=== PATIENT | female | born 1960 | race Caucasian/White ===

== ENCOUNTER → 2017-05-13 | Day surgery (SDC) | payer MEDICARE ==
[~2017-05-13] VITALS: Ht 154.9 cm; Wt 113.3 kg
[~2017-05-13] MED LIST: ACETAMINOPHEN 1000 MG/100 ML VIAL IV ONE; ACETAMINOPHEN/HYDROcodone 325 MG/7.5 MG TAB PO PRN; ADVA250A INH; ASPI81TA11 PO; CANA300T PO; CHLORHEXIDINE GLUCONATE 2 % 1 PACK (2 CLOTHS) TOPICAL PRN; CHLORHEXIDINE GLUCONATE 4% SOLN 120 ML BTL TOPICAL SCH; CLAR10CA3 PO; DILT-60 PO; DO NOT ADM ANY ANTICOAGULANT DRUGS PRN; ERTAPENEM 1,000 MG/NS 100 ML IV SCH; FAMOTIDINE 20 MG/2 ML VIAL ONE; GENTAMICIN SULFATE 80 MG/2 ML VIAL ONE; HYDR-3288 PO; HYDR-3580 PO; HYDROmorphone HCL PF 2 MG/ML VIAL ONE; IMIP50TA2 PO; INSULIN HUMAN REGULAR 1,000 UNITS/10 ML VIAL SQ PRN; INVA1INJ IV; LACTATED RINGER'S 1000 ML IV PRN; LIPI10TA PO; LISI40TA PO; LORA-392 PO; MECL-62 PO; METF1000 PO; METH10TA PO; METOPROLOL TARTRATE 25 MG TAB PO PRN; MIDAZOLAM HCL 2 MG/2 ML VIAL ONE; MONT10TA2 PO; MORPHINE SULFATE 8 MG/ML INJ IV PUSH PRN; NEOSTIGMINE 3 MG/3 ML SYR IV ONE; ONDANSETRON HCL 4 MG/2 ML VIAL IV PUSH ONE; POVIDONE IODINE 5% (ANTISEPSIS KIT) 4 APPLICATIONS EACH NARE PRN; PRED2.5T PO; PRED5TAB PO; PRIL20TA2 PO; PROPOFOL 200 MG/20 ML AMP IV ONE; SODIUM CHLOR 0.9% 250 ML INJ 250 ML ONE; SODIUM CHLORID 0.9% 500 ML IV PRN; SODIUM CHLORIDE 0.9% FLUSH 10 ML FLUSH IV FLUSH PRN; SODIUM CHLORIDE 0.9% FLUSH 10 ML FLUSH IV FLUSH SCH; VANCOMYCIN HCL 1000 MG VIAL ONE; VENTAER INH; VITA2000 PO; WELLTAB39 PO; ZINC10LO4 PO; fentaNYL CITRATE 250 MCG/5 ML AMP ONE
[2017-05-13 06:25] VITALS: BP 144/77; PULSE 95; RESP 18; TEMP 98.6; O2SAT 95
--- NOTE | 2017-05-13 08:32 | PD.OP ---
cc: Jose Daniel Salinas MD Operative Report Date of Surgery: May 13, 2017 Preoperative Diagnosis: Infection right foot with retained hardware Postoperative Diagnosis: Procedure: Removal of deep hardware right calcaneus Anesthesia: Gen. Surgeon: Jose Daniel Salinas Limousine Rental Clerk(s): ROBYN Garsia PA-C The surgical procedure was assisted by my physician operations administrative assistant. My P.A. presence was necessary throughout this case for the manipulation and positioning of the surgical extremity. My P.A. was assisting me throughout the duration of this procedure. The skill set of a physician operations administrative assistant was medically necessary to complete this procedure. During the surgical case the plant maintenance technician was working at the back table and the physician operations administrative assistant was directly assisting me. Operation and Findings: Angelica had a previous right calcaneus fracture treated with open reduction internal fixation. Patient developed cellulitis infection around her calcaneus. She has been on IV antibiotics. CT scan revealed possible involvement of the calcaneus and hardware in the infection. Informed consent was obtained and operative site was marked. She is brought to operating room. She is given IV sedation and general anesthesia. She was placed in a prone position. Bony prominences were well-padded. Timeout procedure was performed. She is on scheduled IV antibiotics. Right leg and foot were prepped with alcohol Hibiclens and draped usual sterile fashion. Procedure began with 3 per case incisions. A small incisions were made through previous scars for the posterior screws. Scar tissue was incised around the screws. There was some bone overgrowth around the screws. Guide pins were now placed through the cannulation's of each of the screws. Fluoroscopy was used to localize the screws. Once the guide pins were in position a cannulated drill was placed over the guidepins to help remove bone. A screwdriver was used to remove each of the screws. Overall the wound and bone appeared to be healthy. There is no evidence of gross infection or purulence. Incisions were closed with 3-0 nylon. Sterile dressings were applied. Patient was awakened and transferred to recovery room in stable condition. Jose Daniel Salinas MD May 13, 2017 08:32
[2017-05-13 09:57] VITALS: BP 155/72; PULSE 96; RESP 18; TEMP 98.6; O2SAT 97
--- NOTE | 2017-05-13 15:03 | RADRPT ---
EXAM DATE/TIME: 05/13/2017 08:14 [facility] COMPARISON: HEEL RIGHT ([id number]), June 10, 2016, 9:23. INDICATIONS : Hardware removal of right calcaneous. Per Dr. Tan only one image saved. MEDICAL HISTORY : None. SURGICAL HISTORY : None. ENCOUNTER: Initial ACUITY: 1 day PAIN SCORE: Non-responsive. LOCATION: Right Heel. FINDINGS: A single lateral view of the ankle is recorded digitally and interpret in room after removal of surgi rodo calcaneal screws. CONCLUSION: Intraoperative image Henok Goldstein MD on May 13, 2017 at 15:00 Board Certified Radiologist. This report was verified electronically.
== END | disposition home or self-care (01) ==
LOC: HSDC 05:31
PROVIDERS: ATTEND Orthopaedic Surgery Orthopaedic Trauma
DX: T84.89XA Other specified complication of internal orthopedic prosthetic devices, implants and grafts, initial encounter (principal); L03.115 Cellulitis of right lower limb
CPT/HCPCS: 01480; 20680; 73650; 76000; J0131; J1170; J1580; J2250; J2405; J2710; J3010; J3370; J7050; J7120

== ENCOUNTER 2017-12-07 16:04 | Observation (INO) | payer MEDICARE ==
[~2017-12-07] VITALS: Ht 154.9 cm; Wt 105.8 kg
[~2017-12-07 16:04] MED LIST changes: -ACETAMINOPHEN 1000 MG/100 ML VIAL IV ONE; -ACETAMINOPHEN/HYDROcodone 325 MG/7.5 MG TAB PO PRN; -ASPI81TA11 PO; +ASPI81TA23 PO; -CHLORHEXIDINE GLUCONATE 2 % 1 PACK (2 CLOTHS) TOPICAL PRN; -CHLORHEXIDINE GLUCONATE 4% SOLN 120 ML BTL TOPICAL SCH; -DILT-60 PO; +DILT120C50 PO; -DO NOT ADM ANY ANTICOAGULANT DRUGS PRN; -ERTAPENEM 1,000 MG/NS 100 ML IV SCH; -FAMOTIDINE 20 MG/2 ML VIAL ONE; -GENTAMICIN SULFATE 80 MG/2 ML VIAL ONE; -HYDROmorphone HCL PF 2 MG/ML VIAL ONE; -INSULIN HUMAN REGULAR 1,000 UNITS/10 ML VIAL SQ PRN; -LACTATED RINGER'S 1000 ML IV PRN; -METOPROLOL TARTRATE 25 MG TAB PO PRN; -MIDAZOLAM HCL 2 MG/2 ML VIAL ONE; -MORPHINE SULFATE 8 MG/ML INJ IV PUSH PRN; -NEOSTIGMINE 3 MG/3 ML SYR IV ONE; -ONDANSETRON HCL 4 MG/2 ML VIAL IV PUSH ONE; -POVIDONE IODINE 5% (ANTISEPSIS KIT) 4 APPLICATIONS EACH NARE PRN; -PROPOFOL 200 MG/20 ML AMP IV ONE; -SODIUM CHLOR 0.9% 250 ML INJ 250 ML ONE; -SODIUM CHLORID 0.9% 500 ML IV PRN; -SODIUM CHLORIDE 0.9% FLUSH 10 ML FLUSH IV FLUSH PRN; -SODIUM CHLORIDE 0.9% FLUSH 10 ML FLUSH IV FLUSH SCH; -VANCOMYCIN HCL 1000 MG VIAL ONE; -fentaNYL CITRATE 250 MCG/5 ML AMP ONE
[2017-12-07 16:22] VITALS: BP 101/59; PULSE 99; RESP 16; TEMP 98.3; O2SAT 97
[2017-12-07] MEDS ORDERED: CANA300T PO (16:58)
--- NOTE | 2017-12-07 17:35 | PD ---
HPI Chief Complaint: Chest Pain Time Seen by Provider: 17:28 Travel History International Travel<30 days: No Contact w/Intl Traveler<30days: No Traveled to known affect area: No History of Present Illness HPI 57yo F with PMH of HTN, DM, HLD presents to the ED with c/o left sided chest pain since yesterday. Chest pain is squeezing, intermittent and last for seconds at a time. Nonradiating and no exacerbating or alleviating factors. Denies any fever, cough, sob, n/v, abdominal pain, focal weakness or numbness. Pt does have GERD but feels a little different from her GERD. Follows with Dr. Lake and last stress test was 10 months ago. Thinks it was negative. Takes aspirin at home but did not take today. PFSH Past Medical History Hx Anticoagulant Therapy: No Arthritis: Yes (BACK AND RIGHT KNEE) Asthma: Yes Anxiety: Yes Depression: Yes Cancer: No Cardiovascular Problems: Yes (fast heart rate) High Cholesterol: Yes Chemotherapy: No COPD: Yes Cerebrovascular Accident: No Diabetes: Yes Patient Takes Glucophage: Yes Diminished Hearing: No Endocrine: Yes (adrenal hyperplasia) Gastrointestinal Disorders: Yes (GERD) GERD: Yes Genitourinary: No Hepatitis: No Hypertension: Yes Immune Disorder: No Musculoskeletal: Yes (ARTHRITIS) Neurologic: Yes (NUMBNESS IN R FOOT) Psychiatric: Yes Reproductive: No Respiratory: Yes (COPD, sleep apna) Integumentary: Yes (MRSA RT LEG) Sleep Apnea: Yes (CPAP FROM HOME) Menopausal: Yes : 2 Para: 0 Miscarriage: 2 Ectopic : Yes Past Surgical History Abdominal Surgery: Yes (CHOLECYSTECTOMY) AICD: No Body Medical Devices: HARDWARE R ANKLE, RODS IN BACK Cardiac Surgery: No Cholecystectomy: Yes Ear Surgery: No Endocrine Surgery: No Eye Surgery: No Genitourinary Surgery: Yes (BLADDER IN CHILDHOOD FOR URGENCY INCONTIENCE) Gynecologic Surgery: Yes (ECTOPIC ) Hysterectomy: No Joint Replacement: No Oral Surgery: Yes Pacemaker: No Thoracic Surgery: No Tonsillectomy: Yes Other Surgery: Yes Social History Alcohol Use: Yes (RARE) Tobacco Use: No (QUIT 11/10/14) Substance Use: No Allergies-Medications (Allergen,Severity, Reaction): Coded Allergies: cefaclor (Unverified Allergy, Severe, THROAT SWELLING, 12/07/17) cephalexin (Unverified Allergy, Severe, THROAT SWELLING, 12/07/17) doxycycline (Unverified Allergy, Severe, HIVES, 12/07/17) minocycline (Unverified Allergy, Severe, HIVES, 12/07/17) penicillin G (Unverified Allergy, Severe, THROAT SWELLING, 12/07/17) tigecycline (Unverified Allergy, Severe, HIVES, 12/07/17) *MDRO Multi-Drug Resistant Organism (Verified Allergy, Unknown, 12/07/17) MRSA (foot wound) - 01/15/14 Reported Meds & Prescriptions Reported Meds & Active Scripts Active [place] (Hydrocodone-Acetaminophen) 7.5-325 mg Tab 1 Tab PO Q4H PRN Reported Invokana (Canagliflozin) 300 Mg Tab 300 Mg PO DAILY Take before 1st meal of day. Prilosec (Omeprazole Magnesium) 20 Mg Tab 20 Mg PO DAILY Singulair (Montelukast Sodium) 10 Mg Tab 10 Mg PO HS Methadone (Methadone HCl) 10 Mg Tab 30 Mg PO DAILY Metformin (Metformin HCl) 1,000 Mg Tab 1,000 Mg PO BIDPC With meals Meclizine (Meclizine HCl) 25 Mg Tab 25 Mg PO HS PRN Claritin (Loratadine) 10 Mg Cap 10 Mg PO DAILY Lisinopril 40 Mg Tab 40 Mg PO DAILY Imipramine HCl 50 Mg Tablet 100 Mg PO BID Advair Diskus Inh (Fluticasone-Salmeterol Inh) 250-50 Mcg/Blist Aer 1 Puff INH BID Rinse mouth after use. Diltiazem CD 24 HR 120 Mg Caper 120 Mg PO DAILY Vitamin D3 (Cholecalciferol) 2,000 Unit Cap 2,000 Units PO DAILY Wellbutrin Xl 24 HR (Bupropion HCl) 300 Mg Tab 300 Mg PO DAILY Lipitor (Atorvastatin Calcium) 10 Mg Tab 10 Mg PO HS Aspirin EC (Aspirin) 81 Mg Tabdr 81 Mg PO HS pt was told not to stop taking Ventolin Hfa 18 GM Inh (Albuterol Sulfate) 90 Mcg/Act Aer 2 Puff INH Q4-6H PRN Review of Systems Except as stated in HPI: all other systems reviewed are Neg Physical Exam Narrative GENERAL: 57yo F in mild distress. SKIN: Focused skin assessment warm/dry. HEAD: Atraumatic. Normocephalic. EYES: Pupils equal and round. No scleral icterus. No injection or drainage. ENT: No nasal bleeding or discharge. Mucous membranes pink and moist. NECK: Trachea midline. No JVD. CARDIOVASCULAR: Regular rate and rhythm. No murmur appreciated. RESPIRATORY: No accessory muscle use. Clear to auscultation. Breath sounds equal bilaterally. GASTROINTESTINAL: Abdomen soft, non-tender, nondistended. MUSCULOSKELETAL: No obvious deformities. No clubbing. No cyanosis. +Bilateral lower ext edema. NEUROLOGICAL: Awake and alert. No obvious cranial nerve deficits. Motor grossly within normal limits. Normal speech. PSYCHIATRIC: Appropriate mood and affect; insight and judgment normal. Data Data Last Documented VS Vital Signs Date Time Temp Pulse Resp B/P (MAP) Pulse Ox O2 Delivery O2 Flow Rate FiO2 12/07/17 16:22 98.3 99 16 101/59 (73) 97 Orders Orders Basic Metabolic Panel (Bmp) (12/07/17 17:32) Complete Blood Count With Diff (12/07/17 17:32) Magnesium (Mg) (12/07/17 17:32) Prothrombin Time / Inr (Pt) (12/07/17 17:32) Act Partial Throm Time (Ptt) (12/07/17 17:32) Troponin I (12/07/17 17:32) Chest, Single Ap (12/07/17 17:32) Nitroglycerin Sl (Nitrostat Sl) (12/07/17 17:45) Aspirin (Aspirin) (12/07/17 18:30) Admit Order (Ed Use Only) (12/07/17 18:36) Place In Observation (12/07/17 18:35) Activity Bed Rest With Brp (12/07/17 18:35) Vital Signs (Adult) Q4H (12/07/17 18:35) Cardiac Rhythm .As Directed (12/07/17 18:35) Notify Dr: Other .PRN (12/07/17 18:35) Notify . Parameters (12/07/17 18:35) Diet Npo (12/08/17 Breakfast) Diet Heart Healthy (12/07/17 Dinner) Ckmb (Isoenzyme) Profile (12/07/17 18:35) Ckmb (Isoenzyme) Profile (12/07/17 21:35) Troponin I (12/07/17 18:35) Troponin I (12/07/17 21:35) Electrocardiogram (12/07/17 18:35) Electrocardiogram (12/07/17 21:35) ^ Obtain (12/07/17 18:35) Sodium Chloride 0.9% Flush (Ns Flush) (12/07/17 18:45) Sodium Chloride 0.9% Flush (Ns Flush) (12/07/17 21:00) Acetaminophen (Tylenol) (12/07/17 18:45) Nitroglycerin Sl (Nitrostat Sl) (12/07/17 18:45) Aspirin (Aspirin) (12/08/17 09:00) Onyx Chip Terrazzo Worker / Telemetry JIM.Q8H (12/07/17 18:35) Bedside Glucose JIM.CSUGAR (12/07/17 18:35) Blood Glucose Goal (Criteria) (12/07/17 18:35) Hypoglycemia 70 Mg/Dl Or < (12/07/17 18:35) Notify Dr: Other (12/07/17 18:35) Dextrose 50% In Suha (Vial) Inj (D50w (Vi (12/07/17 18:45) Glucagon Inj (Glucagon Inj) (12/07/17 18:45) Insulin Aspart Supplemtl Scale (Novolog (12/07/17 21:00) Myocardial Perf Tread Sp W/Ef (12/08/17 ) Albuterol Hfa Inh (Proair Hfa Inh) (12/07/17 18:45) Atorvastatin (Lipitor) (12/07/17 21:00) Diltiazem Cd (Cardizem Cd) (12/08/17 09:00) Acetamin-Hydrocod 325-7.5 Mg ([place] 7.5 (12/07/17 18:45) (Nf) Canagliflozin (Invokana) (12/08/17 09:00) (Nf) Lisinopril (12/08/17 09:00) (Nf) Omeprazole Magnesium (Prilosec) (12/08/17 09:00) Labs Laboratory Tests Test 12/07/17 17:00 White Blood Count 9.0 TH/MM3 Red Blood Count 4.22 MIL/MM3 Hemoglobin 11.5 GM/DL Hematocrit 37.6 % Mean Corpuscular Volume 89.1 FL Mean Corpuscular Hemoglobin 27.3 PG Mean Corpuscular Hemoglobin Concent 30.7 % Red Cell Distribution Width 13.5 % Platelet Count 325 TH/MM3 Mean Platelet Volume 7.8 FL Neutrophils (%) (Auto) 51.6 % Lymphocytes (%) (Auto) 37.8 % Monocytes (%) (Auto) 7.3 % Eosinophils (%) (Auto) 2.4 % Basophils (%) (Auto) 0.9 % Neutrophils # (Auto) 4.6 TH/MM3 Lymphocytes # (Auto) 3.4 TH/MM3 Monocytes # (Auto) 0.7 TH/MM3 Eosinophils # (Auto) 0.2 TH/MM3 Basophils # (Auto) 0.1 TH/MM3 CBC Comment DIFF FINAL Differential Comment Prothrombin Time 10.5 SEC Prothromb Time International Ratio 1.0 RATIO Activated Partial Thromboplast Time 25.1 SEC Blood Urea Nitrogen 14 MG/DL Creatinine 0.83 MG/DL Random Glucose 79 MG/DL Calcium Level 9.0 MG/DL Magnesium Level 2.3 MG/DL Sodium Level 135 MEQ/L Potassium Level 4.2 MEQ/L Chloride Level 102 MEQ/L Carbon Dioxide Level 28.2 MEQ/L Anion Gap 5 MEQ/L Estimat Glomerular Filtration Rate 71 ML/MIN Troponin I LESS THAN 0.02 NG/ML MDM Medical Decision Making Medical Screen Exam Complete: Yes Emergency Medical Condition: Yes Interpretation(s) EKG: NSR 90bpm. Normal axis. No ST segment elevation or depression. Differential Diagnosis GERD vs. ACS vs. musculoskeletal Narrative Course 57yo F with atypical chest pain. However, pt does have risk factors including DM, HTN, HLD, former smoker and obesity. Labs reviewed, no leukocytosis. Troponin negative. CXR negative. Pt given aspirin but does not want nitroglycerin. Discussed with Dr. Carty and accepted to her service for serial EKG and cardiac enzymes. Diagnosis Primary Impression: Chest pain Qualified Codes: R07.9 - Chest pain, unspecified Admitting Information Admitting Physician Requests: Hailey Joy DO Dec 07, 2017 17:35
[2017-12-07 17:44] LABS: AUTOMATED NEUTROPHIL # 4.6 TH/MM3 (1.8-7.7); BASOPHIL # 0.1 TH/MM3 (0-0.2); BASOPHIL % 0.9 % (0.0-2.0); EOSINOPHIL # 0.2 TH/MM3 (0-0.4); EOSINOPHIL % 2.4 % (0.0-4.0); HEMATOCRIT 37.6 % (35.0-46.0); HEMOGLOBIN 11.5 GM/DL (11.6-15.3); LYMPH % 37.8 % (9.0-44.0); LYMPHOCYTE # 3.4 TH/MM3 (1.0-4.8); MEAN CELL VOLUME 89.1 FL (80.0-100.0); MEAN CORPUSCULAR HEMOGLOBIN 27.3 PG (27.0-34.0); MEAN CORPUSCULAR HGB CONC 30.7 % (32.0-36.0); MEAN PLATELET VOLUME 7.8 FL (7.0-11.0); MONO % 7.3 % (0.0-8.0); MONOCYTE # 0.7 TH/MM3 (0-0.9); NEUT % 51.6 % (16.0-70.0); PLATELET COUNT 325 TH/MM3 (150-450); RED BLOOD COUNT 4.22 MIL/MM3 (4.00-5.30); RED CELL DISTRIBUTION WIDTH 13.5 % (11.6-17.2)
[2017-12-07] MEDS: NITROGLYCERIN 0.4 MG SL 25 TABS/BTL SL SCH ×2 (17:45→22:26)
--- NOTE | 2017-12-07 17:54 | RADRPT ---
EXAM DATE/TIME: 12/07/2017 17:34 [facility] COMPARISON: CHEST SINGLE AP, May 22, 2016, 15:35. INDICATIONS : Chest pain. MEDICAL HISTORY : Diabetes mellitus type II. Hypertension. Chronic obstructive pulmonary disease. SURGICAL HISTORY : None. ENCOUNTER: Initial ACUITY: 1 day PAIN SCORE: 6/10 LOCATION: Bilateral chest FINDINGS: A single view of the chest demonstrates the lungs to be symmetrically aerated without evidence of mas s, infiltrate or effusion. The cardiomediastinal contours are unremarkable. Osseous structures are intact. The posterior spinal fixation amber is again noted. CONCLUSION: No acute disease. David Roca MD on December 07, 2017 at 17:51 Board Certified Radiologist. This report was verified electronically.
[2017-12-07 17:56] LABS: CHLORIDE 102 MEQ/L (98-107); SODIUM (NA) 135 MEQ/L (136-145)
[2017-12-07 17:58] LABS: BICARBONATE 28.2 MEQ/L (21.0-32.0); GLUCOSE,RANDOM 79 MG/DL (74-106); MAGNESIUM 2.3 MG/DL (1.5-2.5)
[2017-12-07 17:59] LABS: BLOOD UREA NITROGEN 14 MG/DL (7-18)
[2017-12-07 18:01] LABS: PROTHROMBIN TIME - PATIENT 10.5 SEC (9.8-11.6)
[2017-12-07 18:02] LABS: CREATININE 0.83 MG/DL (0.50-1.00); GLOMERULAR FILTRATION RATE 71 ML/MIN (>89)
[2017-12-07 18:06] LABS: TROPONIN I LESS THAN 0.02 NG/ML (0.02-0.05)
[2017-12-07] MEDS ORDERED: ASPIRIN 325 MG TAB PO ONE (18:30)
[2017-12-07] MEDS ORDERED: DEXTROSE 50% IN WATER 50 ML VIAL(D50) IV PUSH PRN (18:45)
[2017-12-07] MEDS ORDERED: GLUCAGON 1 MG/ML VIAL OTHER PRN (18:45)
[2017-12-07] MEDS ORDERED: NITROGLYCERIN 0.4 MG SL 25 TABS/BTL SL PRN (18:45)
[2017-12-07] MEDS ORDERED: ALBUTEROL SULFATE 90 MCG/ACT HFA 8 GM INHALER INH PRN (18:45)
[2017-12-07] MEDS ORDERED: SODIUM CHLORIDE 0.9% FLUSH 10 ML FLUSH IV FLUSH PRN (18:45)
[2017-12-07] MEDS ORDERED: ACETAMINOPHEN/HYDROcodone 325 MG/7.5 MG TAB PO PRN (18:45)
[2017-12-07] MEDS ORDERED: ACETAMINOPHEN 500 MG CPLT PO PRN (18:45)
[2017-12-07 19:50] VITALS: BP 98/54; PULSE 89; RESP 16; O2SAT 100
[2017-12-07 20:42] LABS: TROPONIN I LESS THAN 0.02 NG/ML (0.02-0.05)
[2017-12-07] MEDS ORDERED: ATORVASTATIN 10 MG TAB PO SCH (21:00)
[2017-12-07 21:15] VITALS: BP 125/65; PULSE 98; RESP 20; TEMP 98.2; O2SAT 96
[2017-12-07 22:00] VITALS: PULSE 93
[2017-12-07 22:06] LABS: TROPONIN I LESS THAN 0.02 NG/ML (0.02-0.05)
[2017-12-07] MEDS: INSULIN ASPART SUPPLEMENTAL SCALE SQ SCH (22:31)
[2017-12-07] MEDS: SODIUM CHLORIDE 0.9% FLUSH 10 ML FLUSH IV FLUSH SCH (22:31)
[2017-12-08] VITALS: BP 116/57; PULSE 104; RESP 20; TEMP 96.9; O2SAT 96
[2017-12-08 04:00] VITALS: BP 106/53; PULSE 85; RESP 20; TEMP 96.5; O2SAT 94
--- NOTE | 2017-12-08 05:20 | EKG ---
Date Performed: 12/07/2017 Time Performed: 22:03:06 PTAGE: 57 years EKG: Sinus rhythm NORMAL ECG No significant change from prior electrocardiogram. PREVIOUS TRACING : 12/07/2017 19.43 DOCTOR: John Carpenter Interpretating Date/Time 12/08/2017 05:19:13
--- NOTE | 2017-12-08 05:20 | EKG ---
Date Performed: 12/07/2017 Time Performed: 19:43:41 PTAGE: 57 years EKG: Sinus rhythm NORMAL ECG No significant change from prior electrocardiogram. PREVIOUS TRACING : 12/07/2017 16.51 DOCTOR: John Carpenter Interpretating Date/Time 12/08/2017 05:20:18
--- NOTE | 2017-12-08 05:24 | EKG ---
Date Performed: 12/07/2017 Time Performed: 16:51:30 PTAGE: 57 years EKG: Sinus rhythm NORMAL ECG No significant change from prior electrocardiogram. PREVIOUS TRACING : 05/22/2016 16.00 DOCTOR: John Carpenter Interpretating Date/Time 12/08/2017 05:22:27
[2017-12-08 07:50] VITALS: BP 120/76; PULSE 96; RESP 20; TEMP 97.6; O2SAT 100
[2017-12-08 07:59] VITALS: PULSE 92
[2017-12-08] MEDS: INSULIN ASPART SUPPLEMENTAL SCALE SQ SCH ×2 (08:00→11:57)
[2017-12-08] MEDS: SODIUM CHLORIDE 0.9% FLUSH 10 ML FLUSH IV FLUSH SCH (08:04)
[2017-12-08] MEDS ORDERED: DILTIAZEM-CD 120 MG CAP ER PO SCH (09:00)
[2017-12-08] MEDS ORDERED: PANTOPRAZOLE SOD 20 MG DELAYED RELEASE TAB PO SCH (09:00)
[2017-12-08] MEDS ORDERED: ASPIRIN 325 MG TAB PO SCH (09:00)
[2017-12-08] MEDS ORDERED: LISINOPRIL 20 MG TAB PO SCH (09:00)
[2017-12-08] MEDS ORDERED: CANAGLIFLOZIN 300 MG PO SCH (09:00)
[2017-12-08 11:50] VITALS: BP 119/71; PULSE 96; RESP 20; TEMP 97.7; O2SAT 100
--- NOTE | 2017-12-08 13:43 | HHI.DCPOC ---
Discharge Care Plan Diagnosis: (1) Chest pain Goals to Promote Your Health * To prevent worsening of your condition and complications * To maintain your health at the optimal level Directions to Meet Your Goals Take your medications as prescribed Follow your dietary instruction Follow activity as directed Keep your appointments as scheduled Take your immunizations and boosters as scheduled If your symptoms worsen call your PCP, if no PCP go to Urgent Care Center or Emergency Room Smoking is Dangerous to Your Health. Avoid second hand smoke Call the 24-hour hour crisis hotline for domestic abuse at Yahir Saleh Dec 08, 2017 13:43
--- NOTE | 2017-12-08 14:10 | HHI.HP ---
HPI Service [facility] Primary Care Physician Marla Ye MD Admission Diagnosis Chest pain Diagnoses: (1) Chest pain Diagnosis: Principal Chief Complaint: Chest pain Travel History International Travel<30 Days: No Contact w/Intl Traveler <30 Da: No Traveled to Known Affected Are: No History of Present Illness 57-year-old female with known history of hypertension, hyperlipidemia , diabetes who presented with a 2 day history of left-sided chest pain. Patient indicates that approximately 2 days ago she started developing a sharp stabbing pain in the left side of her chest which was 5-6 on a pain scale that lasted for a couple seconds at a time. She denied any radiation to neck, back, shoulder, arm, denied any nausea, vomiting, diaphoresis, shortness of breath, lightheadedness, dizziness. He indicated pain would have been at any time during exertion and/or at rest. Patient states that the pain started happening more often than yesterday so she came to emergency department for evaluation. Patient does go to Dr. Gray on a regular basis. Her last stress test was 10 months ago. At that time she indicated that with him he notified her that there was just a small area that looked abnormal. Patient could not explain what abnormal was. Patient was evaluated in emergency department and was recommended to be observed in the chest pain center. Review of Systems Cardiovascular: COMPLAINS OF: Chest pain Except as stated in HPI: all other systems reviewed are Neg Past Family Social History Past Medical History Hypertension Hyperlipidemia Diabetes Chronic affective pulmonary disease Obstructive sleep apnea Past Surgical History Cholecystectomy Tonsillectomy Bladder surgery Spinal fusion from T9 to L4 Right ankle surgery Reported Medications Reported Meds & Active Scripts Active [place] (Hydrocodone-Acetaminophen) 7.5-325 mg Tab 1 Tab PO Q4H PRN Reported Invokana (Canagliflozin) 300 Mg Tab 300 Mg PO DAILY Take before 1st meal of day. Prilosec (Omeprazole Magnesium) 20 Mg Tab 20 Mg PO DAILY Singulair (Montelukast Sodium) 10 Mg Tab 10 Mg PO HS Methadone (Methadone HCl) 10 Mg Tab 30 Mg PO DAILY Metformin (Metformin HCl) 1,000 Mg Tab 1,000 Mg PO BIDPC With meals Meclizine (Meclizine HCl) 25 Mg Tab 25 Mg PO HS PRN Claritin (Loratadine) 10 Mg Cap 10 Mg PO DAILY Lisinopril 40 Mg Tab 40 Mg PO DAILY Imipramine HCl 50 Mg Tablet 100 Mg PO BID Advair Diskus Inh (Fluticasone-Salmeterol Inh) 250-50 Mcg/Blist Aer 1 Puff INH BID Rinse mouth after use. Diltiazem CD 24 HR 120 Mg Caper 120 Mg PO DAILY Vitamin D3 (Cholecalciferol) 2,000 Unit Cap 2,000 Units PO DAILY Wellbutrin Xl 24 HR (Bupropion HCl) 300 Mg Tab 300 Mg PO DAILY Lipitor (Atorvastatin Calcium) 10 Mg Tab 10 Mg PO HS Aspirin EC (Aspirin) 81 Mg Tabdr 81 Mg PO HS pt was told not to stop taking Ventolin Hfa 18 GM Inh (Albuterol Sulfate) 90 Mcg/Act Aer 2 Puff INH Q4-6H PRN Allergies: Coded Allergies: cefaclor (Unverified Allergy, Severe, THROAT SWELLING, 12/07/17) cephalexin (Unverified Allergy, Severe, THROAT SWELLING, 12/07/17) doxycycline (Unverified Allergy, Severe, HIVES, 12/07/17) minocycline (Unverified Allergy, Severe, HIVES, 12/07/17) penicillin G (Unverified Allergy, Severe, THROAT SWELLING, 12/07/17) tigecycline (Unverified Allergy, Severe, HIVES, 12/07/17) Family History Reviewed is significant for mother and father having heart disease. States the mother had multiple stents however lived to well in her 80s Social History Patient quit smoking 3 years ago, prior to that she smoked 1-1/2 pack a cigarettes a day since he was a teenager. Denies any alcohol or illicit drugs Physical Exam Vital Signs Vital Signs Date Time Temp Pulse Resp B/P (MAP) Pulse Ox O2 Delivery O2 Flow Rate FiO2 12/08/17 11:50 97.7 96 20 119/71 (87) 100 12/08/17 07:59 92 12/08/17 07:50 97.6 96 20 120/76 (91) 100 12/08/17 04:00 96.5 85 20 106/53 (70) 94 12/08/17 00:00 96.9 104 20 116/57 (76) 96 12/07/17 22:00 93 12/07/17 21:15 98.2 98 20 125/65 (85) 96 12/07/17 19:50 89 16 98/54 (69) 100 Room Air 12/07/17 16:22 98.3 99 16 101/59 (73) 97 Physical Exam GENERAL: Well-developed, well-nourished, in no acute distress. alert and orientated HEENT: Head is normocephalic without any lesions or masses noted. Facial features are symmetric. Eyes: Pupils equal round reactive to light. Extraocular muscles are intact. Conjunctivae were clear. Oropharyngeal: Pharynx without any erythema edema. Tongue is midline without deviation. Buccal mucosa is moist without any masses or lesions NECK: Supple without any masses. Trachea midline no deviation. No JVD, no bruits are appreciated CARDIAC: Regular rhythm, regular rate. S1/S2 are heard. No murmurs gallops or rubs. Reproducible palpable tenderness over the very far left lateral chest which is worse with movement of her arm and shoulder LUNGS: Clear to auscultation bilaterally. No wheeze, rhonchi or rales. No use of accessory muscles on inspiration or expiration. ABDOMEN: Soft, nontender. Nondistended. Bowel sounds heard in all 4 quadrants. No organomegaly or masses. Negative rebound, negative guarding EXTREMITIES: No edema, pulses are equal bilaterally. No cyanosis or clubbing NEUROLOGY: Mood and affect appear appropriate. Cranial nerves II through XII grossly intact. Muscle strength 5/5 in upper and lower extremities bilaterally. Deep tendon reflexes are 2+ in upper and lower extremities bilaterally. Laboratory Laboratory Tests Test 12/07/17 17:00 12/07/17 20:00 12/07/17 21:35 White Blood Count 9.0 Red Blood Count 4.22 Hemoglobin 11.5 Hematocrit 37.6 Mean Corpuscular Volume 89.1 Mean Corpuscular Hemoglobin 27.3 Mean Corpuscular Hemoglobin Concent 30.7 Red Cell Distribution Width 13.5 Platelet Count 325 Mean Platelet Volume 7.8 Neutrophils (%) (Auto) 51.6 Lymphocytes (%) (Auto) 37.8 Monocytes (%) (Auto) 7.3 Eosinophils (%) (Auto) 2.4 Basophils (%) (Auto) 0.9 Neutrophils # (Auto) 4.6 Lymphocytes # (Auto) 3.4 Monocytes # (Auto) 0.7 Eosinophils # (Auto) 0.2 Basophils # (Auto) 0.1 CBC Comment DIFF FINAL Differential Comment Prothrombin Time 10.5 Prothromb Time International Ratio 1.0 Activated Partial Thromboplast Time 25.1 Blood Urea Nitrogen 14 Creatinine 0.83 Random Glucose 79 Calcium Level 9.0 Magnesium Level 2.3 Sodium Level 135 Potassium Level 4.2 Chloride Level 102 Carbon Dioxide Level 28.2 Anion Gap 5 Estimat Glomerular Filtration Rate 71 Troponin I LESS THAN 0.02 LESS THAN 0.02 LESS THAN 0.02 Total Creatine Kinase 96 95 Result Diagram: 12/07/17 1700 12/07/17 170 Imaging Last Impressions Chest X-Ray 12/07/17 173 Signed Impressions: Service Date/Time: Thursday, December 07, 2017 17:34 - CONCLUSION: No acute disease. MD Fabricio Quiñones VTE Risk Assessment Fabricio VTE Risk Assessment: No/Low Risk (score <= 1) Caprini Risk Assessment Model Point Value = 1 Point Value = 2 Point Value = 3 Point Value = 5 Age 41-60 Minor surgery BMI > 25 kg/m2 Swollen legs Varicose veins or History of unexplained or recurrent spontaneous Oral contraceptives or hormone replacement Sepsis (< 1 month) Serious lung disease, including pneumonia (< 1 month) Abnormal pulmonary function Acute myocardial infarction Congestive heart failure (< 1 month) History of inflammatory bowel disease Medical patient at bed rest Age 61-74 Arthroscopic surgery Major open surgery (> 45 min) Laparoscopic surgery (> 45 min) Malignancy Confined to bed (> 72 hours) Immobilizing plaster cast Central venous access Age >= 75 History of VTE Family history of VTE Factor V Leiden Prothrombin [id number] Lupus anticoagulant Anticardiolipin antibodies Elevated serum homocysteine Heparin-induced thrombocytopenia Other congenital or acquired thrombophilia Stroke (< 1 month) Elective arthroplasty Hip, pelvis, or leg fracture Acute spinal cord injury (< 1 month) Prophylaxis Regimen Total Risk Factor Score Risk Level Prophylaxis Regimen 0-1 Low Early ambulation 2 Moderate Order ONE of the following: *Sequential Compression Device (SCD) *Heparin 5000 units SQ BID 3-4 Higher Order ONE of the following medications: *Heparin 5000 units SQ TID *Enoxaparin/Lovenox 40 mg SQ daily (WT < 150 kg, CrCl > 30 mL/min) *Enoxaparin/Lovenox 30 mg SQ daily (WT < 150 kg, CrCl > 10-29 mL/min) *Enoxaparin/Lovenox 30 mg SQ BID (WT < 150 kg, CrCl > 30 mL/min) AND/OR *Sequential Compression Device (SCD) 5 or more Highest Order ONE of the following medications: *Heparin 5000 units SQ TID (Preferred with Epidurals) *Enoxaparin/Lovenox 40 mg SQ daily (WT < 150 kg, CrCl > 30 mL/min) *Enoxaparin/Lovenox 30 mg SQ daily (WT < 150 kg, CrCl > 10-29 mL/min) *Enoxaparin/Lovenox 30 mg SQ BID (WT < 150 kg, CrCl > 30 mL/min) AND *Sequential Compression Device (SCD) Assessment and Plan Assessment and Plan Chest pain, atypical Patient with increased risk factor to include age, hypertension, hyperlipidemia, diabetes, tobacco use, family history of heart disease Pain is reproducible on palpation and movement of left arm, likely musculoskeletal in nature Patient was ruled out for acute coronary event with serial cardiac enzymes remain negative EKGs which reviewed by us shows sinus rhythm without any changes Requested the patient to have a nuclear stress test to rule out any underlying ischemia, The patient deferring stress test at this time. She has had one done 10 months ago. She states that she will follow-up with Dr. Gray for further recommendations Diabetes Accu-Cheks with sliding scale insulin Hypertension, hyperlipidemia Continue home medications Chronic obstructive pulmonary disease, obstructive sleep apnea Duo nebs as needed Patient may use her own CPAP machine DVT prevention Low risk, early ambulation Discharge disposition Discharge home in stable condition Activity: Ad klaudia. Diet: Healthy heart/diabetic diet Medications per medication reconciliation Follow-up primary medical doctor one week, clinical rehabilitation liaison in 2 weeks Problem Qualifiers (1) Chest pain: Qualified Codes: R07.9 - Chest pain, unspecified Yahir Saleh Dec 08, 2017 14:10
== END 2017-12-08 14:30 | disposition home or self-care (01) ==
LOC: PHED 16:04 → PHEDA 18:37 → PH3B 21:15
PROVIDERS: ADMIT Hospitalist; ATTEND Hospitalist
DX: R07.9 Chest pain, unspecified (principal); E11.9 Type 2 diabetes mellitus without complications; I10 Essential (primary) hypertension; J44.9 Chronic obstructive pulmonary disease, unspecified; G47.33 Obstructive sleep apnea (adult) (pediatric); E78.5 Hyperlipidemia, unspecified; R00.0 Tachycardia, unspecified; E78.00 Pure hypercholesterolemia, unspecified; K21.9 Gastro-esophageal reflux disease without esophagitis; E27.8 Other specified disorders of adrenal gland; M19.90 Unspecified osteoarthritis, unspecified site; M17.11 Unilateral primary osteoarthritis, right knee; R20.0 Anesthesia of skin; Z79.82 Long term (current) use of aspirin; Z99.81 Dependence on supplemental oxygen; Z79.84 Long term (current) use of oral hypoglycemic drugs; Z87.891 Personal history of nicotine dependence
CPT/HCPCS: 71045; 80048; 82550; 82948; 83735; 84484; 85025; 85610; 85730; 93005; 99285; G0378